=== PATIENT | female | born 1960 | race Caucasian/White ===

== ENCOUNTER → 2024-11-15 13:04 | Outpatient (REF) | payer OTHER, SELFPAY | LOC: HWWDC 13:04 | PROVIDERS: ATTENDING PHYSICIAN Family Medicine; REFERRING PHYSICIAN Obstetrics & Gynecology | DX: Z12.31 Encounter for screening mammogram for malignant neoplasm of breast (principal) | CPT/HCPCS: 77063; 77067 ==

== ENCOUNTER 2025-09-09 06:39 | Day surgery (SDC) | payer OTHER, SELFPAY | END 2025-09-09 15:31 | disposition home or self-care (01) | LOC: GI 06:39 | PROVIDERS: ATTENDING PHYSICIAN Internal Medicine Gastroenterology; FAMILY PHYSICIAN Family Medicine | DX: Z12.11 Encounter for screening for malignant neoplasm of colon (principal); K52.9 Noninfective gastroenteritis and colitis, unspecified; K57.30 Diverticulosis of large intestine without perforation or abscess without bleeding; R14.0 Abdominal distension (gaseous); K44.9 Diaphragmatic hernia without obstruction or gangrene; K22.2 Esophageal obstruction; D12.8 Benign neoplasm of rectum; K62.1 Rectal polyp; K52.831 Collagenous colitis; D12.2 Benign neoplasm of ascending colon; D12.3 Benign neoplasm of transverse colon; R89.7 Abnormal histological findings in specimens from other organs, systems and tissues; K29.50 Unspecified chronic gastritis without bleeding; Z86.0101 Personal history of adenomatous and serrated colon polyps | CPT/HCPCS: 45385; 45380; 43239; 88305; 88342 ==

== ENCOUNTER → 2025-10-01 11:59 | Outpatient (REF) | payer OTHER, SELFPAY | LOC: RAD 11:59 | PROVIDERS: ATTENDING PHYSICIAN Internal Medicine Gastroenterology; FAMILY PHYSICIAN Family Medicine | DX: K22.9 Disease of esophagus, unspecified (principal) | CPT/HCPCS: 71260; Q9967 ==